=== PATIENT | female | born 1995 | race Two or more races ===

== ENCOUNTER 2020-09-17 12:57 | Emergency (ER) | payer SELFPAY ==
[~2020-09-17] VITALS: Ht 160 cm; Wt 68.1 kg
--- NOTE | 2020-09-17 13:07 | ED.ADGEN ---
Past Medical History Past Medical History: No Pertinent History Past Surgical History: No Surgical History Smoking Status: Heavy Tobacco Smoker Alcohol Use: Occasionally Drug Use: Amphetamine, Marijuana, Phencyclidine Social History Narrative: homeless General Adult EDM: Chief Complaint: ABDOMINAL PAIN HPI: HPI: Patient is a 25 year old female brought to the emergency department by EMS with reports of pain all over. On arrival the patient denies having pain all over. She currently reports concerns that something is coming out of her vagina. She states that she has a burning sensation in her pelvis. She denies any irregular vaginal discharge, vaginal bleeding, or vaginal odor. The patient states at times she does have burning with urination she denies any blood in her urine or increased urinary frequency. She denies any fever, cough, body aches, sore throat, nausea, vomiting, diarrhea, or abdominal pain. The patient reports concerns of spiders living in her pelvis after she was bit by a spider on the buttock 5 months ago. She reports that she last used methamphetamine 2 days ago. She denies being under the influence of any illicit drugs at this time. She currently denies any pain. She is alert and oriented x3. Review of Systems: Review of Systems: Complete ROS is negative unless otherwise noted in HPI. Current Medications: Current Medications Medications (Trade) Dose Ordered Sig/Addis Start Time Stop Time Status Last Admin Dose Admin Azithromycin (Zithromax) 1,000 mg 1X ONCE 09/17/20 15:15 09/17/20 15:16 DC 09/17/20 15:27 1,000 MG Ceftriaxone Sodium (Rocephin Im) 500 mg 1X ONCE 09/17/20 15:15 09/17/20 15:16 DC 09/17/20 15:27 500 MG Allergies: Allergies: Allergies Coded Allergies Type Severity Reaction Last Updated Verified No Known Drug Allergies 09/17/20 No Physical Exam: PE: See Above Constitutional: Well developed, well nourished, no acute distress, non-toxic appearance, paranoid demeanor. [] HENT: Normocephalic, atraumatic, bilateral external ears normal, nose normal. [] Eyes: PERRLA, EOMI, conjunctiva normal, no discharge. [] Neck: Normal range of motion, no stridor. [] Cardiovascular:Heart rate regular rhythm Lungs & Thorax: Respirations even and unlabored, no retractions, no respiratory distress Abdomen: soft, no tenderness, no palpable masses Skin: Warm, dry, no erythema, no rash. [] Extremities: No cyanosis, ROM intact, no edema. [] Neurologic: Alert and oriented X 3, no focal deficits noted. [] Psychologic: Affect normal, judgement normal, mood normal. [] Current Patient Data: Labs: Laboratory Tests Test 09/17/20 14:01 09/17/20 14:04 Urine Collection Type Unknown Urine Color Dk yellow Urine Clarity Cloudy Urine pH 6.0 (<5.0-8.0) Urine Specific [place] >=1.030 (1.000-1.030) Urine Protein Negative mg/dL (NEG-TRACE) Urine Glucose (UA) Negative mg/dL (NEG) Urine Ketones (Stick) Trace mg/dL (NEG) Urine Blood Large (NEG) Urine Nitrite Negative (NEG) Urine Bilirubin Small (NEG) Urine Urobilinogen Dipstick 1.0 mg/dL (0.2 mg/dL) Urine Leukocyte Esterase Moderate (NEG) Urine RBC 3-5 /HPF (0-2) Urine WBC 1-4 /HPF (0-4) Urine Squamous Epithelial Cells Many /LPF Urine Bacteria Moderate /HPF (0-FEW) Urine Mucus Marked /LPF Urine Trichomonas Present Urine Opiates Screen Neg (NEG) Urine Methadone Screen Neg (NEG) Urine Barbiturates Neg (NEG) Urine Phencyclidine Screen Pos (NEG) Urine Amphetamine/Methamphetamine Pos (NEG) Urine Benzodiazepines Screen Neg (NEG) Urine Cocaine Screen Neg (NEG) Urine Cannabinoids Screen Pos (NEG) Urine Ethyl Alcohol Neg (NEG) POC Urine HCG, Qualitative Hcg negative (Negative) Vital Signs: Vital Signs Date Time Temp Pulse Resp B/P (MAP) Pulse Ox O2 Delivery O2 Flow Rate FiO2 09/17/20 13:54 98.0 65 14 158/102 (120) 100 Room Air 98.0 EKG: EKG: [] Heart Score: Risk Factors: Risk Factors: DM, Current or recent (<one month) smoker, HTN, HLP, family history of CAD, obesity. Risk Scores: Score 0 - 3: 2.5% MACE over next 6 weeks - Discharge Home Score 4 - 6: 20.3% MACE over next 6 weeks - Admit for Clinical Observation Score 7 - 10: 72.7% MACE over next 6 weeks - Early Invasive Strategies Radiology/Procedures: Radiology/Procedures: PROCEDURE: PELVIS W/TV INDICATION: Reason: pelvic discomfort, feels like something is going to come out of her vagina / Spl. Instructions: / History: COMPARISON: None. TECHNIQUE: Grayscale and color ultrasound images uterus and adnexa. FINDINGS: Uterus is 68 x 54 x 36 mm. Partial visualization of echogenic structure within. Possible Small hypoechoic region in the right adnexa but not well seen. The urinary bladder is not distended therefore limited transabdominal evaluation. Bilateral ovaries are obscured. IMPRESSION: * Very limited exam given lack of distention of the urinary bladder and the patient could not tolerate transvaginal imaging at this time. Both ovaries are obscured although there is a questionable hypoechoic region in the right adnexa. * Partial visualization of echogenic structure in the uterus. Could be from intrauterine device but only partially seen. [] Course & Med Decision Making: Course & Med Decision Making Pertinent Labs and Imaging studies reviewed. (See chart for details) 25-year-old female presents emergency department with multiple complaints. She refused a pelvic exam. The patient also refused transvaginal ultrasound. Ultrasound did not reveal any acute findings, patient did have a history of an IUD. UA was concerning for trichomonas. Prescription was written for Flagyl 500 mg p.o. twice daily x7 days. [] Gonorrhea and Chlamydia testing is pending. Patient was treated prophylactically with 250 mg of IM Rocephin, and 1 g of PO Zithromax. Patient was instructed to avoid having intercourse until the results of gonorrhea and chlamydia testing are available, patient was notified that these results would not be available for 48 hours. If one or both of these tests is positive, patient needs to refrain from intercourse for approximately 1 week following the treatment of any current partners. Patient verbalized an understanding of home care, medications, follow-up, and return to ED instructions and was in agreement with the plan of care. Rafaela Disclaimer: Rafaela Disclaimer: This electronic medical record was generated, in whole or in part, using a voice recognition dictation system. Departure Departure Impression: Primary Impression: Contact with and (suspected) exposure to infections with a predominantly sexual mode of transmission Additional Impressions: Infection due to trichomonas (vaginalis) Paranoia History of illicit drug use Disposition: 01 DC HOME SELF CARE/HOMELESS Condition: STABLE Patient Instructions: Sexually Transmitted Disease, [id number], Trichomoniasis-Brief Additional Instructions: Stop using illicit drugs. Fill the prescription and use as directed. Recommend that you go to your local health department for comprehensive sexually tra nsmitted disease testing. You have been treated for a suspected gonorrhea and chlamydia. Avoid having intercourse until the results of gonorrhea and chlamydia testing are available, these results will not be available for 48 hours. If one or both of these tests is positive, you need to refrain from intercourse for approximately 1 week following the treatment of any current partners. Follow-up with your primary care doctor if symptoms persist, return to ER symptoms worsen. [facility] [address] [place] [address] [facility] [address] [place] [address] [facility] [address] [facility] [place] [address] [facility] [address] [place] [address] [facility] [address] [place] [address] [facility] [address] [place] [address] [facility] [address] [place] [address] [facility] [address] [place] [address] [facility] [address] [place] [address] [facility] [address] [place] [address] Scripts Metronidazole (METRONIDAZOLE) 500 Mg Tablet 1 TAB PO BID for 7 Days, #14 TAB 0 Refills Prov: MILLER SCOTT APRN 09/17/20 Problem Qualifiers MILLER SCOTT APRN Sep 17, 2020 13:07
[2020-09-17 13:54] VITALS: BP 158/102
[2020-09-17 14:08] LABS: BILIRUBIN,URINE SMALL (NEG); CLARITY,URINE CLOUDY; NITRITE,URINE NEGATIVE (NEG); PROTEIN,URINE NEGATIVE (NEG-TRACE)
[2020-09-17 14:15] LABS: COLOR,URINE DK YELLOW
[2020-09-17 14:17] LABS: BACTERIA,URINE MODERATE /HPF (0-FEW); TRICHOMONAS,URINE PRESENT
[2020-09-17 14:23] LABS: BARBITURATES NEG (NEG); BENZODIAZEPINES NEG (NEG); CANNABINOIDS POS (NEG); COCAINE NEG (NEG); METHADONE NEG (NEG); OPIATES NEG (NEG); PHENCYCLIDINE POS (NEG)
--- NOTE | 2020-09-17 14:29 | RAD ---
INDICATION: Reason: pelvic discomfort, feels like something is going to come out of her vagina / Spl. Instructions: / History: COMPARISON: None. TECHNIQUE: Grayscale and color ultrasound images uterus and adnexa. FINDINGS: Uterus is 68 x 54 x 36 mm. Partial visualization of echogenic structure within. Possible Small hypoec hoic region in the right adnexa but not well seen. The urinary bladder is not distended therefore limited transabdominal evaluation. Bilateral ovaries are obscured. IMPRESSION: * Very limited exam given lack of distention of the urinary bladder and the patient could not dariel ate transvaginal imaging at this time. Both ovaries are obscured although there is a questionable hyp oechoic region in the right adnexa. * Partial visualization of echogenic structure in the uterus. Could be from intrauterine device but only partially seen. Electronically signed by: Gomez Estrada MD (09/17/2020 2:26 PM) [id number]
[2020-09-17 14:49] LABS: AMPHETAMINE/METHAMPHETAMINE POS (NEG)
[2020-09-17] MEDS ORDERED: cefTRIAXone IM 250 MG VIAL IM ONE (15:15)
[2020-09-17] MEDS ORDERED: AZITHROMYCIN 250 MG TABLET. PO ONE (15:15)
[2020-09-17] MEDS ORDERED: METR-34 PO (15:37)
== END 2020-09-17 16:42 | disposition home or self-care (01) ==
LOC: ER 12:57
DX: A59.01 Trichomonal vulvovaginitis (principal); F22 Delusional disorders; R20.8 Other disturbances of skin sensation; R30.9 Painful micturition, unspecified; F19.10 Other psychoactive substance abuse, uncomplicated; F12.90 Cannabis use, unspecified, uncomplicated; F10.10 Alcohol abuse, uncomplicated; Z20.2 Contact with and (suspected) exposure to infections with a predominantly sexual mode of transmission
CPT/HCPCS: 76830; 76856; 80307; 81001; 81025; 87086; 87491; 87591; 96372; 99284; J0696